=== PATIENT | female | born 1995 | race Caucasian/White ===

== ENCOUNTER 2021-03-26 23:59 | Emergency (ER) | payer OTHER ==
[2021-03-27 01:02] LABS: #Basophils 0.1 10x3/uL (0.0-0.2); #Eosinphils 0.1 10x3/uL (0.0-0.5); #Monocytes 1.1 10x3/uL (0.0-1.1); #Neutrophils 7.2 10x3/uL (1.5-8.4); %Basophils 0.5 % (0.0-2.0); %Lymphocytes 27.6 % (18.0-47.0); %Neutrophils 61.5 % (40.0-75.0); Hemoglobin 12.7 g/dL (12.0-15.5); Mean Corpuscular HGB CONC 32.8 g/dL (32.0-36.0); Mean Corpuscular Volume 76.3 fl (81.6-98.3); Mean Platelet Volume 9.2 fl (7.4-10.4); Platelet Count 271 10x3/uL (150-450); Red Blood Cell (RBC) Count 5.07 10x6/uL (3.90-5.03); White Blood Cell (WBC) Count 11.7 10x3/uL (3.5-10.5)
[2021-03-27 01:08] LABS: SARS-CoV-2 NAA Rapid Test Not Detected (NotDetected)
[2021-03-27 01:19] LABS: ALT (SGPT) 31 U/L (8-55); AST (SGOT) 18 U/L (5-34); Albumin 4.5 g/dL (3.5-5.0); Alkaline Phosphatase 97 U/L (40-110); Anion Gap 16 mmol/L (10-20); BUN (Urea Nitrogen) 7 mg/dL (7.0-18.7); Bilirubin, Total 0.6 mg/dL (0.2-1.2); Calc. Creatinine Clearance 0 mL/min (70-130); Calcium 9.5 mg/dL (7.8-10.44); Carbon Dioxide 22 mmol/L (22-29); Chloride 103 mmol/L (98-107); Globulin 4.2 g/dL (2.4-3.5); Glucose 103 mg/dL (70-105); Potassium 3.8 mmol/L (3.5-5.1); Protein, Total 8.7 g/dL (6.0-8.3); Sodium 137 mmol/L (136-145)
[2021-03-27] MEDS ORDERED: cefTRIAXone\\ROCEPHIN 2 GM VIAL ONE (01:41)
[2021-03-27] MEDS ORDERED: Dexamethasone 20 MG/5 ML VIAL SLOW IVP SCH (02:00)
== END 2021-03-27 03:30 | disposition home or self-care (01) ==
LOC: CSHERS 23:59
DX: J18.9 Pneumonia, unspecified organism (principal); Z20.822 Contact with and (suspected) exposure to COVID-19; Z79.899 Other long term (current) drug therapy; K86.1 Other chronic pancreatitis; E27.1 Primary adrenocortical insufficiency
CPT/HCPCS: 0240U; 36415; 71045; 80053; 83605; 85025; 87040; 96365; 96375; J0696; J1100

== ENCOUNTER 2021-04-13 19:23 | Emergency (ER) | payer OTHER ==
[2021-04-13 19:58] LABS: Hemoglobin 12.6 g/dL (12.0-15.5); Mean Corpuscular HGB CONC 32.8 g/dL (32.0-36.0); Mean Corpuscular Volume 76.3 fl (81.6-98.3); Mean Platelet Volume 8.8 fl (7.4-10.4); Platelet Count 375 10x3/uL (150-450); RBC Distribution Width 14.7 % (11.5-14.5); Red Blood Cell (RBC) Count 5.03 10x6/uL (3.90-5.03); White Blood Cell (WBC) Count 6.1 10x3/uL (3.5-10.5)
[2021-04-13 20:15] LABS: ALT (SGPT) 38 U/L (8-55); AST (SGOT) 22 U/L (5-34); Albumin 4.6 g/dL (3.5-5.0); Alkaline Phosphatase 74 U/L (40-110); Anion Gap 12 mmol/L (10-20); BUN (Urea Nitrogen) 9 mg/dL (7.0-18.7); Bilirubin, Total 0.4 mg/dL (0.2-1.2); Calc. Creatinine Clearance 0 mL/min (70-130); Calcium 9.7 mg/dL (7.8-10.44); Carbon Dioxide 25 mmol/L (22-29); Chloride 106 mmol/L (98-107); Globulin 3.1 g/dL (2.4-3.5); Glucose 94 mg/dL (70-105); Lipase 37 U/L (8-78); Potassium 4.2 mmol/L (3.5-5.1); Protein, Total 7.7 g/dL (6.0-8.3); Sodium 139 mmol/L (136-145)
[2021-04-13 20:36] LABS: Eosinophils 3 % (0-10); Lymphocytes 61 % (21-51); Monocytes 1 % (0-10); Neutrophil 35 % (42-75)
[2021-04-13 20:37] LABS: MDiff Complete? YES; Microcytosis SLIGHT = 6-15 cells (100X) (0-5/hpf); Platelet Morphology Comment Appears Adequate
[2021-04-13] MEDS ORDERED: Ondansetron PF 4 MG/2 ML Vial ONE (21:20)
[2021-04-13] MEDS ORDERED: HYDROmorphone 0.5 MG/0.5 ML SYRINGE ONE ×2 (21:21)
== END 2021-04-13 22:39 | disposition home or self-care (01) ==
LOC: CSHERS 19:23
DX: R10.12 Left upper quadrant pain (principal); Z79.899 Other long term (current) drug therapy
CPT/HCPCS: 36415; 74022; 80053; 83690; 85025; 96374; 96375; J1170; J2405

== ENCOUNTER 2021-06-04 12:27 | Emergency (ER) | payer OTHER ==
[2021-06-04] MEDS ORDERED: Ondansetron PF 4 MG/2 ML Vial ONE (13:17)
[2021-06-04] MEDS ORDERED: Boostrix 0.5 ML (Tdap) VIAL ONE (13:17)
[2021-06-04 13:27] LABS: #Eosinphils 0.1 10x3/uL (0.0-0.5); #Monocytes 0.5 10x3/uL (0.0-1.1); #Neutrophils 3.8 10x3/uL (1.5-8.4); %Basophils 0.6 % (0.0-2.0); %Eosinophils 1.8 % (0.0-6.0); %Lymphocytes 37.1 % (18.0-47.0); %Monocytes 7.4 % (0.0-10.0); %Neutrophils 52.8 % (40.0-75.0); Hemoglobin 12.1 g/dL (12.0-15.5); Mean Corpuscular Hemoglobin 26.5 pg (27.0-33.0); Mean Corpuscular Volume 78.1 fl (81.6-98.3); Mean Platelet Volume 9.1 fl (7.4-10.4); Platelet Count 273 10x3/uL (150-450); RBC Distribution Width 15.5 % (11.5-14.5); Red Blood Cell (RBC) Count 4.56 10x6/uL (3.90-5.03); White Blood Cell (WBC) Count 7.1 10x3/uL (3.5-10.5)
[2021-06-04] MEDS ORDERED: Ampicillin/Sulbactam 3 GM in Sodium Chloride 0.9% 100 ML IVPB SCH (13:30)
[2021-06-04 13:42] LABS: ALT (SGPT) 70 U/L (8-55); AST (SGOT) 38 U/L (5-34); Albumin 4.3 g/dL (3.5-5.0); Alkaline Phosphatase 66 U/L (40-110); Anion Gap 14 mmol/L (10-20); BUN (Urea Nitrogen) 11 mg/dL (7.0-18.7); Bilirubin, Total 0.5 mg/dL (0.2-1.2); Calc. Creatinine Clearance 0 mL/min (70-130); Calcium 9.2 mg/dL (7.8-10.44); Carbon Dioxide 22 mmol/L (22-29); Chloride 105 mmol/L (98-107); Globulin 3.1 g/dL (2.4-3.5); Glucose 91 mg/dL (70-105); Potassium 3.9 mmol/L (3.5-5.1); Protein, Total 7.4 g/dL (6.0-8.3); Sodium 137 mmol/L (136-145)
[2021-06-04] MEDS ORDERED: Rabies Vaccine Human 2.5 UNITS VIAL ONE (13:53)
[2021-06-04] MEDS ORDERED: Ketorolac Tromethamine 30 MG/ML VIAL ONE (14:33)
== END 2021-06-04 15:03 | disposition home or self-care (01) ==
LOC: CSHERS 12:27
DX: S61.451A Open bite of right hand, initial encounter (principal); L03.011 Cellulitis of right finger; Z23 Encounter for immunization; W55.01XA Bitten by cat, initial encounter
CPT/HCPCS: 36415; 80053; 83605; 85025; 87040; 90375; 90471; 90472; 90675; 90715; 96365; 96372; 96375; J0295; J1885; J2405; J3490

== ENCOUNTER 2021-08-17 14:31 | Emergency (ER) | payer OTHER ==
[2021-08-17] MEDS ORDERED: Ondansetron ODT 4 MG TAB ONE (15:57)
== END 2021-08-17 17:09 | disposition home or self-care (01) ==
LOC: CSHERS 14:31
DX: R11.2 Nausea with vomiting, unspecified (principal)
CPT/HCPCS: 87081; 87430; 99284; Q0162

== ENCOUNTER 2021-11-18 23:33 | Emergency (ER) | payer OTHER ==
[2021-11-18] MEDS ORDERED: Ketorolac Tromethamine 30 MG/ML VIAL ONE (23:54)
[2021-11-18] MEDS ORDERED: Ondansetron PF 4 MG/2 ML Vial ONE (23:54)
[2021-11-19 00:11] LABS: Hemoglobin 12.6 g/dL (12.0-15.5); Mean Corpuscular HGB CONC 34.5 g/dL (32.0-36.0); Mean Corpuscular Hemoglobin 27.5 pg (27.0-33.0); Mean Corpuscular Volume 79.5 fl (81.6-98.3); Mean Platelet Volume 9.6 fl (7.4-10.4); Platelet Count 276 10x3/uL (150-450); RBC Distribution Width 13.8 % (11.5-14.5); Red Blood Cell (RBC) Count 4.59 10x6/uL (3.90-5.03); White Blood Cell (WBC) Count 7.3 10x3/uL (3.5-10.5)
[2021-11-19 00:20] LABS: MDiff Complete? YES
[2021-11-19 00:26] LABS: ALT (SGPT) 52 U/L (8-55); AST (SGOT) 26 U/L (5-34); Alkaline Phosphatase 62 U/L (40-110); Anion Gap 15 mmol/L (10-20); BUN (Urea Nitrogen) 10 mg/dL (7.0-18.7); Bilirubin, Total 0.4 mg/dL (0.2-1.2); Calc. Creatinine Clearance 0 mL/min (70-130); Calcium 9.3 mg/dL (7.8-10.44); Carbon Dioxide 22 mmol/L (22-29); Chloride 108 mmol/L (98-107); Estimated GFR 97; Globulin 3.1 g/dL (2.4-3.5); Glucose 99 mg/dL (70-105); Lipase 43 U/L (8-78); Potassium 4.2 mmol/L (3.5-5.1); Protein, Total 7.1 g/dL (6.0-8.3); Sodium 141 mmol/L (136-145)
[2021-11-19 00:39] LABS: Eosinophils 2 % (0-10); Lymphocytes 48 % (21-51); Monocytes 7 % (0-10); Neutrophil 37 % (42-75); Reactive Lymphocytes 6 % (0-10)
[2021-11-19 00:41] LABS: Platelet Morphology Comment Appears Adequate
[2021-11-19] MEDS ORDERED: Iopamidol 370 76% 100 ML VIAL ONE (15:05)
== END 2021-11-19 02:15 | disposition home or self-care (01) ==
LOC: CSHERS 23:33
DX: R10.13 Epigastric pain (principal); R11.2 Nausea with vomiting, unspecified; R10.10 Upper abdominal pain, unspecified
CPT/HCPCS: 74177; 80053; 83690; 85025; 96361; 96374; 96375; J1885; J2405; Q9967

== ENCOUNTER 2022-02-12 02:27 | Emergency (ER) | payer OTHER ==
[2022-02-12 03:38] LABS: Bilirubin Neg (Negative); Blood, Urine 10 (Negative); Glucose, Urine (Dipstick) Normal (Negative); Ketone, Urine Negative (Negative); Leukocyte Negative (Negative); Nitrite Negative (Negative); Protein, Urine (Dipstick) 15 mg/dl (Neg-Trace); Urobilinogen Normal mg/dL (Less than 2)
[2022-02-12] MEDS ORDERED: diphenhydrAMINE 50 MG/ML VIAL ONE (03:40)
[2022-02-12] MEDS ORDERED: Metoclopramide HCl 10 MG/2 ML VIAL ONE (03:40)
[2022-02-12] MEDS ORDERED: Fentanyl 100 MCG/2 ML VIAL ONE (03:40)
[2022-02-12] MEDS ORDERED: Magnesium 2 GM/50 ML BAG (IN WATER) ONE (03:41)
[2022-02-12 04:07] LABS: Hemoglobin 13.1 g/dL (12.0-15.5); Mean Corpuscular HGB CONC 34.9 g/dL (32.0-36.0); Mean Corpuscular Hemoglobin 28.1 pg (27.0-33.0); Mean Corpuscular Volume 80.5 fl (81.6-98.3); Mean Platelet Volume 9.6 fl (7.4-10.4); Platelet Count 306 10x3/uL (150-450); RBC Distribution Width 13.4 % (11.5-14.5); Red Blood Cell (RBC) Count 4.66 10x6/uL (3.90-5.03); White Blood Cell (WBC) Count 9.3 10x3/uL (3.5-10.5)
[2022-02-12 04:16] LABS: ALT (SGPT) 68 U/L (8-55); AST (SGOT) 39 U/L (5-34); Albumin 4.5 g/dL (3.5-5.0); Alkaline Phosphatase 76 U/L (40-110); Anion Gap 15 mmol/L (10-20); BUN (Urea Nitrogen) 16 mg/dL (7.0-18.7); Bilirubin, Total 0.3 mg/dL (0.2-1.2); CK (CPK) 72 U/L (29-168); Calc. Creatinine Clearance 0 mL/min (70-130); Calcium 9.7 mg/dL (7.8-10.44); Carbon Dioxide 22 mmol/L (22-29); Chloride 106 mmol/L (98-107); Estimated GFR 94; Globulin 3.5 g/dL (2.4-3.5); Glucose 104 mg/dL (70-105); Lipase 46 U/L (8-78); Potassium 3.7 mmol/L (3.5-5.1); Sodium 139 mmol/L (136-145)
[2022-02-12 04:22] LABS: MDiff Complete? YES
[2022-02-12 04:25] LABS: BHCG - Serum Negative (NEGATIVE); Pregs Control Background? CLEAR/WHITE (CLR/WHITE); Pregs Control Bar Appear? YES (CONTROL BAR)
[2022-02-12 04:26] LABS: Eosinophils 2 % (0-10); Lymphocytes 50 % (21-51); Monocytes 8 % (0-10); Neutrophil 37 % (42-75); Reactive Lymphocytes 3 % (0-10)
[2022-02-12 04:28] LABS: Platelet Morphology Comment Appears Adequate; RBC Morphology Normal
[2022-02-12 04:29] LABS: RBC/HPF 0-3 HPF (0-3)
[2022-02-12 04:30] LABS: Bacteria/HPF None Seen HPF (None Seen)
== END 2022-02-12 05:31 | disposition home or self-care (01) ==
LOC: CSHERS 02:27
DX: R10.9 Unspecified abdominal pain (principal); R11.2 Nausea with vomiting, unspecified
CPT/HCPCS: 80053; 81003; 81015; 82550; 83690; 84703; 85025; 96361; 96365; 96375; 96376; J1200; J2765; J3010; J3475

== ENCOUNTER 2022-03-11 16:23 | Inpatient (IN) | payer OTHER ==
[2022-03-11] MEDS ORDERED: Ondansetron PF 4 MG/2 ML Vial ONE (16:57)
[2022-03-11] MEDS ORDERED: HYDROmorphone 0.5 MG/0.5 ML SYRINGE ONE ×3 (16:58→17:48)
[2022-03-11 17:05] LABS: Hemoglobin 13.4 g/dL (12.0-15.5); Mean Corpuscular HGB CONC 34.6 g/dL (32.0-36.0); Mean Corpuscular Hemoglobin 28.1 pg (27.0-33.0); Mean Corpuscular Volume 81.1 fl (81.6-98.3); Mean Platelet Volume 9.3 fl (7.4-10.4); Platelet Count 300 10x3/uL (150-450); RBC Distribution Width 12.9 % (11.5-14.5); Red Blood Cell (RBC) Count 4.77 10x6/uL (3.90-5.03); White Blood Cell (WBC) Count 8.2 10x3/uL (3.5-10.5)
[2022-03-11 17:06] LABS: MDiff Complete? YES
[2022-03-11 17:12] LABS: Pregnancy Test - Urine (BHCG) Negative (Negative); Pregu Control Background? CLEAR/WHITE (CLR/WHITE); Pregu Control Bar Appear? YES (CONTROL BAR); Specific Gravity 1.025 (1.002-1.036)
[2022-03-11 17:20] LABS: ALT (SGPT) 99 U/L (8-55); AST (SGOT) 67 U/L (5-34); Albumin 4.5 g/dL (3.5-5.0); Alkaline Phosphatase 80 U/L (40-110); Anion Gap 14 mmol/L (10-20); BUN (Urea Nitrogen) 15 mg/dL (7.0-18.7); Bilirubin, Total 0.5 mg/dL (0.2-1.2); Calc. Creatinine Clearance 0 mL/min (70-130); Calcium 9.6 mg/dL (7.8-10.44); Carbon Dioxide 23 mmol/L (22-29); Chloride 104 mmol/L (98-107); Estimated GFR 89; Globulin 3.6 g/dL (2.4-3.5); Glucose 86 mg/dL (70-105); Lipase 456 U/L (8-78); Potassium 3.8 mmol/L (3.5-5.1); Protein, Total 8.1 g/dL (6.0-8.3); Sodium 137 mmol/L (136-145)
[2022-03-11 18:17] LABS: Eosinophils 2 % (0-10); Lymphocytes 53 % (21-51); Monocytes 8 % (0-10); Neutrophil 36 % (42-75)
[2022-03-11 18:19] LABS: Platelet Morphology Comment Appears Adequate; RBC Morphology Normal
[2022-03-11] MEDS ORDERED: Morphine 4 MG/ML VIAL SLOW IVP PRN (18:36)
[2022-03-11] MEDS ORDERED: Acetaminophen 325 MG TAB PO PRN (18:36)
[2022-03-11] MEDS ORDERED: Enoxaparin Sodium 40 MG/0.4 ML SYRINGE SC SCH (20:45)
[2022-03-11 21:06] VITALS: BMI 39.0
[2022-03-11] MEDS: Lactated Ringer's 1,000 ML IV SCH (21:54)
[2022-03-11] MEDS: HYDROmorphone 0.5 MG/0.5 ML SYRINGE SLOW IVP PRN (22:01)
[2022-03-11] MEDS: Ondansetron PF 4 MG/2 ML Vial IVP PRN (22:49)
[2022-03-11] MEDS: Mirtazapine 15 MG Soltab PO SCH (22:50)
[2022-03-11] MEDS ORDERED: hydrOXYzine 25 MG TAB PO SCH (23:45)
[2022-03-12] MEDS: Lactated Ringer's 1,000 ML IV SCH ×4 (03:08→12:58)
[2022-03-12 04:26] LABS: Hemoglobin 11.1 g/dL (12.0-15.5); Mean Corpuscular HGB CONC 34.5 g/dL (32.0-36.0); Mean Corpuscular Hemoglobin 28.2 pg (27.0-33.0); Mean Corpuscular Volume 81.7 fl (81.6-98.3); Mean Platelet Volume 9.5 fl (7.4-10.4); Platelet Count 237 10x3/uL (150-450); RBC Distribution Width 12.9 % (11.5-14.5); Red Blood Cell (RBC) Count 3.94 10x6/uL (3.90-5.03); White Blood Cell (WBC) Count 6.4 10x3/uL (3.5-10.5)
[2022-03-12 04:38] LABS: ALT (SGPT) 79 U/L (8-55); AST (SGOT) 55 U/L (5-34); Albumin 3.6 g/dL (3.5-5.0); Alkaline Phosphatase 65 U/L (40-110); Anion Gap 12 mmol/L (10-20); BUN (Urea Nitrogen) 16 mg/dL (7.0-18.7); Bilirubin, Total 0.4 mg/dL (0.2-1.2); Calc. Creatinine Clearance 140 mL/min (70-130); Calcium 8.9 mg/dL (7.8-10.44); Carbon Dioxide 21 mmol/L (22-29); Chloride 108 mmol/L (98-107); Estimated GFR 95; Globulin 2.7 g/dL (2.4-3.5); Glucose 86 mg/dL (70-105); Potassium 3.7 mmol/L (3.5-5.1); Protein, Total 6.3 g/dL (6.0-8.3); Sodium 137 mmol/L (136-145)
[2022-03-12 05:03] LABS: MDiff Complete? YES
[2022-03-12 05:07] LABS: Band 5 % (5-11); Lymphocytes 61 % (21-51); Monocytes 3 % (0-10); Neutrophil 29 % (42-75); Reactive Lymphocytes 1 % (0-10)
[2022-03-12 05:08] LABS: Platelet Morphology Comment Appears Adequate; RBC Morphology Normal
[2022-03-12] MEDS: HYDROmorphone 0.5 MG/0.5 ML SYRINGE SLOW IVP PRN ×3 (10:24→22:07)
[2022-03-12 11:23] LABS: SARS-CoV-2 NAA Rapid Test Not Detected (NotDetected)
[2022-03-12] MEDS: HYDROcodone/Acetaminophen 5/325 mg Tablet PO PRN ×2 (12:58→19:56)
[2022-03-12] MEDS: Ondansetron PF 4 MG/2 ML Vial IVP PRN ×2 (15:54→22:06)
[2022-03-12] MEDS: Mirtazapine 15 MG Soltab PO SCH (19:57)
[2022-03-13 05:04] LABS: #Eosinphils 0.1 10x3/uL (0.0-0.5); #Monocytes 0.4 10x3/uL (0.0-1.1); #Neutrophils 2.7 10x3/uL (1.5-8.4); %Basophils 0.6 % (0.0-2.0); %Eosinophils 1.6 % (0.0-6.0); %Lymphocytes 48.4 % (18.0-47.0); %Monocytes 6.2 % (0.0-10.0); Hemoglobin 11.5 g/dL (12.0-15.5); Mean Corpuscular HGB CONC 35.2 g/dL (32.0-36.0); Mean Corpuscular Hemoglobin 28.3 pg (27.0-33.0); Mean Corpuscular Volume 80.3 fl (81.6-98.3); Mean Platelet Volume 9.4 fl (7.4-10.4); Platelet Count 228 10x3/uL (150-450); Red Blood Cell (RBC) Count 4.07 10x6/uL (3.90-5.03); White Blood Cell (WBC) Count 6.3 10x3/uL (3.5-10.5)
[2022-03-13 05:11] LABS: ALT (SGPT) 80 U/L (8-55); AST (SGOT) 53 U/L (5-34); Albumin 3.6 g/dL (3.5-5.0); Alkaline Phosphatase 71 U/L (40-110); Anion Gap 12 mmol/L (10-20); BUN (Urea Nitrogen) 10 mg/dL (7.0-18.7); Bilirubin, Total 0.6 mg/dL (0.2-1.2); Calc. Creatinine Clearance 140 mL/min (70-130); Calcium 9.1 mg/dL (7.8-10.44); Carbon Dioxide 24 mmol/L (22-29); Chloride 106 mmol/L (98-107); Estimated GFR 95; Globulin 2.8 g/dL (2.4-3.5); Glucose 91 mg/dL (70-105); Potassium 3.9 mmol/L (3.5-5.1); Protein, Total 6.4 g/dL (6.0-8.3); Sodium 138 mmol/L (136-145)
[2022-03-13] MEDS: Lactated Ringer's 1,000 ML IV SCH ×2 (09:14→18:08)
[2022-03-13] MEDS: HYDROcodone/Acetaminophen 10/325 mg Tablet PO PRN (09:21)
[2022-03-13] MEDS: Ondansetron PF 4 MG/2 ML Vial IVP PRN ×2 (09:23→20:16)
[2022-03-13] MEDS: HYDROcodone/Acetaminophen 5/325 mg Tablet PO PRN (14:18)
[2022-03-13] MEDS: HYDROcodone/Acetaminophen 10/325 mg Tablet PO SCH ×2 (18:06→22:08)
[2022-03-13] MEDS: Mirtazapine 15 MG Soltab PO SCH (20:16)
[2022-03-14 05:17] LABS: Hemoglobin 11.2 g/dL (12.0-15.5); Mean Corpuscular HGB CONC 34.9 g/dL (32.0-36.0); Mean Corpuscular Hemoglobin 28.6 pg (27.0-33.0); Mean Corpuscular Volume 82.1 fl (81.6-98.3); Mean Platelet Volume 9.3 fl (7.4-10.4); Platelet Count 245 10x3/uL (150-450); RBC Distribution Width 12.9 % (11.5-14.5); Red Blood Cell (RBC) Count 3.91 10x6/uL (3.90-5.03); White Blood Cell (WBC) Count 6.6 10x3/uL (3.5-10.5)
[2022-03-14 05:35] LABS: ALT (SGPT) 65 U/L (8-55); AST (SGOT) 40 U/L (5-34); Albumin 3.4 g/dL (3.5-5.0); Alkaline Phosphatase 66 U/L (40-110); Anion Gap 12 mmol/L (10-20); BUN (Urea Nitrogen) 10 mg/dL (7.0-18.7); Bilirubin, Total 0.3 mg/dL (0.2-1.2); Calc. Creatinine Clearance 138 mL/min (70-130); Calcium 8.6 mg/dL (7.8-10.44); Carbon Dioxide 23 mmol/L (22-29); Chloride 106 mmol/L (98-107); Estimated GFR 94; Globulin 2.7 g/dL (2.4-3.5); Glucose 120 mg/dL (70-105); Potassium 3.9 mmol/L (3.5-5.1); Protein, Total 6.1 g/dL (6.0-8.3); Sodium 137 mmol/L (136-145)
[2022-03-14] MEDS: Lactated Ringer's 1,000 ML IV SCH ×2 (05:52→14:49)
[2022-03-14 05:59] LABS: MDiff Complete? YES
[2022-03-14 06:11] LABS: Eosinophils 1 % (0-10); Lymphocytes 44 % (21-51); Monocytes 5 % (0-10); Neutrophil 46 % (42-75); Reactive Lymphocytes 3 % (0-10)
[2022-03-14] MEDS: HYDROcodone/Acetaminophen 5/325 mg Tablet PO PRN ×2 (10:07→19:37)
[2022-03-14] MEDS: HYDROcodone/Acetaminophen 10/325 mg Tablet PO PRN (14:46)
[2022-03-14] MEDS: Ondansetron PF 4 MG/2 ML Vial IVP PRN (14:46)
[2022-03-14] MEDS ORDERED: Ketorolac Tromethamine 30 MG/ML VIAL IVP SCH (15:00)
[2022-03-14] MEDS: Mirtazapine 15 MG Soltab PO SCH (20:35)
[2022-03-14] MEDS: Ketorolac Tromethamine 30 MG/ML VIAL IVP SCH (20:36)
[2022-03-15] MEDS: Ketorolac Tromethamine 30 MG/ML VIAL IVP SCH ×4 (03:23→20:42)
[2022-03-15 04:51] LABS: ALT (SGPT) 99 U/L (8-55); AST (SGOT) 75 U/L (5-34); Albumin 3.4 g/dL (3.5-5.0); Alkaline Phosphatase 70 U/L (40-110); Anion Gap 11 mmol/L (10-20); BUN (Urea Nitrogen) 9 mg/dL (7.0-18.7); Bilirubin, Total 0.3 mg/dL (0.2-1.2); Calc. Creatinine Clearance 140 mL/min (70-130); Calcium 9.1 mg/dL (7.8-10.44); Carbon Dioxide 24 mmol/L (22-29); Chloride 107 mmol/L (98-107); Estimated GFR 95; Globulin 2.7 g/dL (2.4-3.5); Glucose 97 mg/dL (70-105); Lipase 85 U/L (8-78); Potassium 4.2 mmol/L (3.5-5.1); Protein, Total 6.1 g/dL (6.0-8.3); Sodium 138 mmol/L (136-145)
[2022-03-15] MEDS: Lactated Ringer's 1,000 ML IV SCH (05:19)
[2022-03-15] MEDS: Ondansetron PF 4 MG/2 ML Vial IVP PRN ×2 (09:43→18:01)
[2022-03-15] MEDS: HYDROcodone/Acetaminophen 5/325 mg Tablet PO PRN (18:02)
[2022-03-15] MEDS: Mirtazapine 15 MG Soltab PO SCH (20:45)
[2022-03-16] MEDS: Lactated Ringer's 1,000 ML IV SCH ×2 (01:15)
[2022-03-16] MEDS: Ketorolac Tromethamine 30 MG/ML VIAL IVP SCH ×2 (05:05→08:22)
[2022-03-16 11:10] VITALS: BP 120/65; TEMP 97.6
[2022-03-16] MEDS: HYDROcodone/Acetaminophen 5/325 mg Tablet PO PRN (12:03)
== END 2022-03-16 12:55 | disposition home or self-care (01) | DRG 439 ==
LOC: CSHERS 16:23 → CSHTELE 20:55 → INTOOBSV 20:55 → OBSVTOIN 03-14 14:26
PROVIDERS: ADMIT Internal Medicine; ATTEND Family Medicine
DX: K85.90 Acute pancreatitis without necrosis or infection, unspecified (principal); F32.2 Major depressive disorder, single episode, severe without psychotic features; R45.851 Suicidal ideations; F43.10 Post-traumatic stress disorder, unspecified; E66.9 Obesity, unspecified; F51.04 Psychophysiologic insomnia; D12.6 Benign neoplasm of colon, unspecified; K76.0 Fatty (change of) liver, not elsewhere classified; F41.1 Generalized anxiety disorder; K86.1 Other chronic pancreatitis; Z20.822 Contact with and (suspected) exposure to COVID-19; Z88.5 Allergy status to narcotic agent; Z79.899 Other long term (current) drug therapy; Z90.49 Acquired absence of other specified parts of digestive tract; Z93.2 Ileostomy status; Z68.39 Body mass index [BMI] 39.0-39.9, adult; Z90.710 Acquired absence of both cervix and uterus
CPT/HCPCS: 36415; 80053; 81025; 82787; 83690; 84478; 85025; J1170; J1650; J1885; J2405; J7120; U0002

== ENCOUNTER 2022-09-02 15:42 | Emergency (ER) | payer OTHER ==
[~2022-09-02 15:42] MED LIST: Iopamidol 300 61% 100 ML VIAL FS ONE
[2022-09-02] MEDS ORDERED: Haloperidol Lactate 5 MG/ML VIAL ONE (16:35)
[2022-09-02] MEDS ORDERED: diphenhydrAMINE 50 MG/ML VIAL ONE (16:35)
[2022-09-02] MEDS ORDERED: HYDROmorphone 0.5 MG/0.5 ML SYRINGE ONE (16:36)
[2022-09-02] MEDS ORDERED: Ondansetron PF 4 MG/2 ML Vial ONE ×2 (16:36→18:15)
[2022-09-02 16:45] LABS: #Basophils 0.1 10x3/uL (0.0-0.2); #Eosinphils 0.2 10x3/uL (0.0-0.5); #Monocytes 0.5 10x3/uL (0.0-1.1); #Neutrophils 3.1 10x3/uL (1.5-8.4); %Basophils 0.9 % (0.0-2.0); %Eosinophils 2.2 % (0.0-6.0); %Lymphocytes 49.1 % (18.0-47.0); %Monocytes 6.1 % (0.0-10.0); %Neutrophils 41.3 % (40.0-75.0); Mean Corpuscular HGB CONC 33.5 g/dL (32.0-36.0); Mean Corpuscular Hemoglobin 26.8 pg (27.0-33.0); Mean Platelet Volume 9.2 fl (7.4-10.4); Platelet Count 274 10x3/uL (150-450); RBC Distribution Width 13.4 % (11.5-14.5); Red Blood Cell (RBC) Count 4.85 10x6/uL (3.90-5.03); White Blood Cell (WBC) Count 7.4 10x3/uL (3.5-10.5)
[2022-09-02 16:56] LABS: ALT (SGPT) 75 U/L (8-55); AST (SGOT) 43 U/L (5-34); Albumin 4.7 g/dL (3.5-5.0); Alkaline Phosphatase 88 U/L (40-110); Anion Gap 14 mmol/L (10-20); BUN (Urea Nitrogen) 9 mg/dL (7.0-18.7); Bilirubin, Total 0.3 mg/dL (0.2-1.2); Calc. Creatinine Clearance 0 mL/min (70-130); Calcium 9.6 mg/dL (7.8-10.44); Carbon Dioxide 24 mmol/L (22-29); Chloride 104 mmol/L (98-107); Estimated GFR 99; Globulin 3.4 g/dL (2.4-3.5); Glucose 85 mg/dL (70-105); Lipase 42 U/L (8-78); Potassium 3.9 mmol/L (3.5-5.1); Protein, Total 8.1 g/dL (6.0-8.3); Sodium 138 mmol/L (136-145)
== END 2022-09-02 18:23 | disposition home or self-care (01) ==
LOC: CSHERS 15:42
DX: K86.1 Other chronic pancreatitis (principal)
CPT/HCPCS: 74177; 80053; 83690; 85025; 96361; 96374; 96375; J1170; J1200; J1630; J2405; Q9967

== ENCOUNTER 2022-12-20 11:35 | Emergency (ER) | payer OTHER ==
[2022-12-20] MEDS ORDERED: Iopamidol 300 61% 100 ML VIAL FS ONE (11:58)
[2022-12-20 12:38] LABS: #Basophils 0.1 10x3/uL (0.0-0.2); #Eosinphils 0.1 10x3/uL (0.0-0.5); #Monocytes 0.4 10x3/uL (0.0-1.1); #Neutrophils 2.3 10x3/uL (1.5-8.4); %Basophils 0.9 % (0.0-2.0); %Eosinophils 2.1 % (0.0-6.0); %Lymphocytes 50.8 % (18.0-47.0); %Monocytes 6.3 % (0.0-10.0); %Neutrophils 39.7 % (40.0-75.0); Hematocrit 37.8 % (34.9-44.5); Hemoglobin 12.7 g/dL (12.0-15.5); Mean Corpuscular HGB CONC 33.6 g/dL (32.0-36.0); Mean Corpuscular Hemoglobin 27.3 pg (27.0-33.0); Mean Corpuscular Volume 81.1 fl (81.6-98.3); Mean Platelet Volume 9.4 fl (7.4-10.4); Platelet Count 281 10x3/uL (150-450); RBC Distribution Width 13.1 % (11.5-14.5); Red Blood Cell (RBC) Count 4.66 10x6/uL (3.90-5.03); White Blood Cell (WBC) Count 5.7 10x3/uL (3.5-10.5)
[2022-12-20 12:47] LABS: BHCG - Serum Negative (NEGATIVE)
[2022-12-20 12:48] LABS: Pregs Control Background? CLEAR/WHITE (CLR/WHITE); Pregs Control Bar Appear? YES (CONTROL BAR)
[2022-12-20 12:52] LABS: ALT (SGPT) 67 U/L (8-55); AST (SGOT) 46 U/L (5-34); Albumin 4.5 g/dL (3.5-5.0); Alkaline Phosphatase 76 U/L (40-110); Anion Gap 14 mmol/L (10-20); BUN (Urea Nitrogen) 7 mg/dL (7.0-18.7); Bilirubin, Total 0.4 mg/dL (0.2-1.2); Calc. Creatinine Clearance 0 mL/min (70-130); Calcium 9.2 mg/dL (7.8-10.44); Carbon Dioxide 22 mmol/L (22-29); Chloride 107 mmol/L (98-107); Estimated GFR 92; Globulin 2.7 g/dL (2.4-3.5); Glucose 94 mg/dL (70-105); Lipase 43 U/L (8-78); Protein, Total 7.2 g/dL (6.0-8.3); Sodium 139 mmol/L (136-145)
[2022-12-20 12:53] LABS: Troponin I Less than 0.010 ng/mL (< 0.028)
[2022-12-20] MEDS ORDERED: Ketorolac Tromethamine 30 MG/ML VIAL ONE (12:55)
[2022-12-20] MEDS ORDERED: Ondansetron PF 4 MG/2 ML Vial ONE ×2 (12:55→14:50)
[2022-12-20 13:52] LABS: Bilirubin Neg (Negative); Blood, Urine 10 (Negative); Clarity Clear (Clear); Glucose, Urine (Dipstick) Normal (Negative); Ketone, Urine Negative (Negative); Leukocyte 25 (Negative); Nitrite Negative (Negative); Protein, Urine (Dipstick) Negative (Neg-Trace); Specific Gravity, Urine 1.025 (1.005-1.030); Urobilinogen Normal mg/dL (Less than 2)
[2022-12-20 14:04] LABS: Bacteria/HPF 3+ HPF (None Seen); CAUTI Indications for Culture Pelvic or flank pain; RBC/HPF 0-3 HPF (0-3)
[2022-12-20 14:06] LABS: Urine Culture Reflex No No
== END 2022-12-20 15:40 | disposition home or self-care (01) ==
LOC: CSHERS 11:35
DX: K86.1 Other chronic pancreatitis (principal)
CPT/HCPCS: 71045; 74177; 80053; 81001; 83690; 84484; 84703; 85025; 96361; 96374; 96375; 96376; J1885; J2405; Q9967

== ENCOUNTER 2023-01-08 12:19 | Emergency (ER) | payer OTHER ==
[2023-01-08 13:40] LABS: SARS-CoV-2 NAA Rapid Test DETECTED (NotDetected)
[2023-01-08 15:14] LABS: #Eosinphils 0.1 10x3/uL (0.0-0.5); #Monocytes 0.4 10x3/uL (0.0-1.1); #Neutrophils 4.4 10x3/uL (1.5-8.4); %Basophils 0.7 % (0.0-2.0); %Eosinophils 0.9 % (0.0-6.0); %Lymphocytes 9.8 % (18.0-47.0); %Monocytes 8.1 % (0.0-10.0); %Neutrophils 80.3 % (40.0-75.0); Hematocrit 38.5 % (34.9-44.5); Hemoglobin 13.1 g/dL (12.0-15.5); Mean Corpuscular Hemoglobin 27.3 pg (27.0-33.0); Mean Corpuscular Volume 80.4 fl (81.6-98.3); Mean Platelet Volume 9.5 fl (7.4-10.4); Platelet Count 214 10x3/uL (150-450); Red Blood Cell (RBC) Count 4.79 10x6/uL (3.90-5.03); White Blood Cell (WBC) Count 5.4 10x3/uL (3.5-10.5)
[2023-01-08 15:15] LABS: BHCG - Serum Negative (NEGATIVE); Pregs Control Background? CLEAR/WHITE (CLR/WHITE); Pregs Control Bar Appear? YES (CONTROL BAR)
[2023-01-08] MEDS ORDERED: Ondansetron PF 4 MG/2 ML Vial ONE (15:17)
[2023-01-08] MEDS ORDERED: Ketorolac Tromethamine 30 MG/ML VIAL ONE (15:18)
[2023-01-08 15:24] LABS: ALT (SGPT) 63 U/L (8-55); AST (SGOT) 40 U/L (5-34); Albumin 4.6 g/dL (3.5-5.0); Alkaline Phosphatase 73 U/L (40-110); Anion Gap 16 mmol/L (10-20); BUN (Urea Nitrogen) 11 mg/dL (7.0-18.7); Bilirubin, Total 0.4 mg/dL (0.2-1.2); Calc. Creatinine Clearance 0 mL/min (70-130); Calcium 9.7 mg/dL (7.8-10.44); Carbon Dioxide 21 mmol/L (22-29); Chloride 105 mmol/L (98-107); Estimated GFR 79; Globulin 3.4 g/dL (2.4-3.5); Glucose 93 mg/dL (70-105); Lipase 24 U/L (8-78); Potassium 4.2 mmol/L (3.5-5.1); Sodium 138 mmol/L (136-145)
[2023-01-08 16:42] LABS: Bilirubin Neg (Negative); Blood, Urine 10 (Negative); Clarity Clear (Clear); Glucose, Urine (Dipstick) Normal (Negative); Ketone, Urine Negative (Negative); Leukocyte Negative (Negative); Nitrite Negative (Negative); Protein, Urine (Dipstick) Negative (Neg-Trace); Urobilinogen Normal mg/dL (Less than 2)
[2023-01-08 16:58] LABS: Bacteria/HPF 1+ HPF (None Seen); CAUTI Indications for Culture Fever or rigors; Mucous/LPF Rare LPF (<2+); RBC/HPF 0-3 HPF (0-3); Squamous Epithelial 0-3 HPF (0-3); Transitional Epithelial 0-3 HPF (None Seen); WBC/HPF 0-3 HPF (0-3)
[2023-01-08 16:59] LABS: Urine Culture Reflex No No
== END 2023-01-08 18:11 | disposition home or self-care (01) ==
LOC: CSHERS 12:19
DX: U07.1 COVID-19 (principal)
CPT/HCPCS: 36415; 80053; 81001; 83605; 83690; 84703; 85025; 96361; 96374; 96375; J1885; J2405

== ENCOUNTER 2023-03-15 18:48 | Emergency (ER) | payer OTHER | END 2023-03-15 21:00 | disposition home or self-care (01) | LOC: CSHERS 18:48 | DX: K02.9 Dental caries, unspecified (principal); K04.7 Periapical abscess without sinus; K03.81 Cracked tooth | CPT/HCPCS: 99282 ==

== ENCOUNTER 2023-03-17 06:15 | Emergency (ER) | payer OTHER ==
[2023-03-17] MEDS ORDERED: HYDROmorphone 0.5 MG/0.5 ML SYRINGE ONE (08:03)
[2023-03-17] MEDS ORDERED: Ondansetron PF 4 MG/2 ML Vial ONE (08:03)
[2023-03-17 08:07] LABS: BHCG - Serum Negative (NEGATIVE); Pregs Control Background? CLEAR/WHITE (CLR/WHITE); Pregs Control Bar Appear? YES (CONTROL BAR)
[2023-03-17 08:15] LABS: ALT (SGPT) 55 U/L (8-55); AST (SGOT) 39 U/L (5-34); Albumin 4.6 g/dL (3.5-5.0); Alkaline Phosphatase 75 U/L (40-110); Anion Gap 17 mmol/L (10-20); BUN (Urea Nitrogen) 10 mg/dL (7.0-18.7); Bilirubin, Total 0.5 mg/dL (0.2-1.2); Calc. Creatinine Clearance 0 mL/min (70-130); Calcium 9.9 mg/dL (7.8-10.44); Carbon Dioxide 17 mmol/L (22-29); Chloride 108 mmol/L (98-107); Estimated GFR 73; Globulin 4.1 g/dL (2.4-3.5); Glucose 103 mg/dL (70-105); Lipase 48 U/L (8-78); Potassium 4.8 mmol/L (3.5-5.1); Protein, Total 8.7 g/dL (6.0-8.3); Sodium 137 mmol/L (136-145)
[2023-03-17 08:59] LABS: #Basophils 0.1 10x3/uL (0.0-0.2); #Eosinphils 0.1 10x3/uL (0.0-0.5); #Monocytes 0.4 10x3/uL (0.0-1.1); %Eosinophils 0.7 % (0.0-6.0); %Lymphocytes 24.6 % (18.0-47.0); %Monocytes 5.5 % (0.0-10.0); %Neutrophils 67.9 % (40.0-75.0); Hematocrit 38.3 % (34.9-44.5); Hemoglobin 13.1 g/dL (12.0-15.5); Mean Corpuscular HGB CONC 34.2 g/dL (32.0-36.0); Mean Corpuscular Hemoglobin 28.2 pg (27.0-33.0); Mean Corpuscular Volume 82.4 fl (81.6-98.3); Mean Platelet Volume 9.5 fl (7.4-10.4); Platelet Count 274 10x3/uL (150-450); RBC Distribution Width 13.2 % (11.5-14.5); Red Blood Cell (RBC) Count 4.65 10x6/uL (3.90-5.03); White Blood Cell (WBC) Count 7.3 10x3/uL (3.5-10.5)
[2023-03-17 09:33] LABS: Bilirubin Neg (Negative); Blood, Urine 10 (Negative); Clarity Slightly Cloudy (Clear); Glucose, Urine (Dipstick) Normal (Negative); Ketone, Urine 5 mg/dL (Negative); Leukocyte Negative (Negative); Nitrite Negative (Negative); Protein, Urine (Dipstick) 30 mg/dl (Neg-Trace); Specific Gravity, Urine 1.025 (1.005-1.030); Urobilinogen Normal mg/dL (Less than 2)
[2023-03-17] MEDS ORDERED: diphenhydrAMINE 50 MG/ML VIAL ONE (10:20)
[2023-03-17] MEDS ORDERED: Metoclopramide HCl 10 MG/2 ML VIAL ONE (10:21)
[2023-03-17] MEDS ORDERED: Ketorolac Tromethamine 30 MG/ML VIAL ONE (10:22)
[2023-03-17 10:27] LABS: Bacteria/HPF 3+ HPF (None Seen); CAUTI Indications for Culture Dysuria,urgency,freq; Calcium Oxalate Crystals 3+ HPF (None Seen); Mucous/LPF 1+ LPF (<2+); RBC/HPF 0-3 HPF (0-3); WBC/HPF 0-3 HPF (0-3)
[2023-03-17 10:28] LABS: Urine Culture Reflex No No
== END 2023-03-17 11:30 | disposition home or self-care (01) ==
LOC: CSHERS 06:15
DX: R11.2 Nausea with vomiting, unspecified (principal); R10.9 Unspecified abdominal pain
CPT/HCPCS: 74177; 80053; 80178; 81001; 83690; 84703; 85025; 96361; 96374; 96375; J1170; J1200; J1885; J2405; J2765

== ENCOUNTER 2023-03-18 12:45 | Emergency (ER) | payer OTHER ==
[2023-03-18 16:14] LABS: #Eosinphils 0.1 10x3/uL (0.0-0.5); #Monocytes 0.5 10x3/uL (0.0-1.1); #Neutrophils 5.3 10x3/uL (1.5-8.4); %Basophils 0.5 % (0.0-2.0); %Eosinophils 1.5 % (0.0-6.0); %Lymphocytes 25.9 % (18.0-47.0); %Monocytes 5.9 % (0.0-10.0); %Neutrophils 66.1 % (40.0-75.0); Hematocrit 39.7 % (34.9-44.5); Hemoglobin 13.3 g/dL (12.0-15.5); Mean Corpuscular HGB CONC 33.5 g/dL (32.0-36.0); Mean Corpuscular Hemoglobin 27.9 pg (27.0-33.0); Mean Corpuscular Volume 83.4 fl (81.6-98.3); Mean Platelet Volume 9.4 fl (7.4-10.4); Platelet Count 273 10x3/uL (150-450); RBC Distribution Width 13.4 % (11.5-14.5); Red Blood Cell (RBC) Count 4.76 10x6/uL (3.90-5.03)
[2023-03-18 16:30] LABS: ALT (SGPT) 36 U/L (8-55); AST (SGOT) 19 U/L (5-34); Albumin 4.2 g/dL (3.5-5.0); Alkaline Phosphatase 72 U/L (40-110); Anion Gap 12 mmol/L (10-20); BUN (Urea Nitrogen) 8 mg/dL (7.0-18.7); Bilirubin, Total 0.6 mg/dL (0.2-1.2); Calc. Creatinine Clearance 0 mL/min (70-130); Calcium 9.5 mg/dL (7.8-10.44); Carbon Dioxide 21 mmol/L (22-29); Chloride 111 mmol/L (98-107); Estimated GFR 93; Globulin 3.4 g/dL (2.4-3.5); Glucose 94 mg/dL (70-105); Lipase 49 U/L (8-78); Potassium 4.4 mmol/L (3.5-5.1); Protein, Total 7.6 g/dL (6.0-8.3); Sodium 140 mmol/L (136-145)
[2023-03-18] MEDS ORDERED: Promethazine HCl 25 MG in Sodium Chloride 0.9% 50 ML IVPB SCH (16:30)
[2023-03-18] MEDS ORDERED: Metoclopramide HCl 10 MG/2 ML VIAL ONE (18:01)
[2023-03-18] MEDS ORDERED: diphenhydrAMINE 50 MG/ML VIAL ONE (18:01)
== END 2023-03-18 18:30 | disposition home or self-care (01) ==
LOC: CSHERS 12:45
DX: R11.2 Nausea with vomiting, unspecified (principal); E86.0 Dehydration
CPT/HCPCS: 36415; 80053; 83690; 85025; 96374; 96375; J1200; J2550; J2765

== ENCOUNTER 2024-04-23 07:08 | Emergency (ER) | payer OTHER ==
[2024-04-23] MEDS ORDERED: Ketorolac Tromethamine 30 MG (1 mL) VIAL ONE (07:41)
[2024-04-23] MEDS ORDERED: Ondansetron PF 4 MG/2 ML Vial ONE (07:41)
[2024-04-23 08:15] LABS: #Basophils 0.06 10x3/uL (0.0-0.2); #Eosinophils 0.64 10x3/uL (0.0-0.5); #Monocytes 0.42 10x3/uL (0.0-1.1); %Basophils 0.6 % (0.0-2.0); %Eosinophils 6.9 % (0.0-6.0); %Lymphocytes 23.9 % (18.0-47.0); %Monocytes 4.5 % (0.0-10.0); %Neutrophils 63.9 % (40.0-75.0); Hematocrit 36.6 % (34.9-44.5); Hemoglobin 12.3 g/dL (12.0-15.5); Mean Corpuscular HGB CONC 33.6 g/dL (32.0-36.0); Mean Corpuscular Hemoglobin 27.2 pg (27.0-33.0); Mean Corpuscular Volume 80.8 fL (81.6-98.3); Mean Platelet Volume 9.4 fL (7.4-10.4); Platelet Count 238 10x3/uL (150-450); RBC Distribution Width 12.8 % (11.5-14.5); Red Blood Cell (RBC) Count 4.53 10x6/uL (3.90-5.03); White Blood Cell (WBC) Count 9.3 10x3/uL (3.5-10.5)
[2024-04-23 08:32] LABS: ALT (SGPT) 21 U/L (8-55); AST (SGOT) 19 U/L (5-34); Albumin 3.9 g/dL (3.5-5.0); Alkaline Phosphatase 63 U/L (40-110); Anion Gap 13 mmol/L (10-20); BUN (Urea Nitrogen) 13 mg/dL (7.0-18.7); Bilirubin, Total 0.7 mg/dL (0.2-1.2); Calc. Creatinine Clearance 0 mL/min (70-130); Calcium 9.5 mg/dL (7.8-10.44); Carbon Dioxide 22 mmol/L (22-29); Chloride 107 mmol/L (98-107); Estimated GFR 81; Globulin 3.4 g/dL (2.4-3.5); Glucose 98 mg/dL (70-105); Lipase 51 U/L (8-78); Magnesium 1.9 mg/dL (1.6-2.6); Potassium 4.1 mmol/L (3.5-5.1); Protein, Total 7.3 g/dL (6.0-8.3); Sodium 138 mmol/L (136-145)
[2024-04-23 09:12] LABS: Bilirubin Neg (Negative); Blood, Urine 10 (Negative); Clarity Clear (Clear); Glucose, Urine (Dipstick) Normal (Negative); Ketone, Urine Negative (Negative); Leukocyte 25 (Negative); Nitrite Negative (Negative); Protein, Urine (Dipstick) 15 mg/dl (Neg-Trace); Urobilinogen Normal mg/dL (Less than 2)
[2024-04-23 09:14] LABS: Pregnancy Test - Urine (BHCG) Negative (Negative); Pregu Control Background? CLEAR/WHITE (CLR/WHITE); Pregu Control Bar Appear? YES (CONTROL BAR)
[2024-04-23] MEDS ORDERED: fentaNYL 50 mcg/mL 1 mL Vial ONE (10:00)
[2024-04-23] MEDS ORDERED: Promethazine HCl 25 MG in Sodium Chloride 0.9% 50 ML IVPB SCH (10:15)
[2024-04-23 10:24] LABS: CAUTI Indications for Culture Pelvic or flank pain; RBC/HPF 0-3 HPF (0-3)
[2024-04-23 10:25] LABS: Bacteria/HPF 2+ HPF (None Seen); Squamous Epithelial Greater than 50 HPF (0-3); Urine Culture Reflex No No
[2024-04-23] MEDS ORDERED: Iopamidol 370 76% 100 ML VIAL ONE (13:09)
== END 2024-04-23 11:04 | disposition home or self-care (01) ==
LOC: CSHERS 07:08
DX: K52.9 Noninfective gastroenteritis and colitis, unspecified (principal); Z87.891 Personal history of nicotine dependence
CPT/HCPCS: 74177; 80053; 81001; 81025; 83690; 83735; 85025; 96374; 96375; J1885; J2405; J2550; J3010; Q9967